=== PATIENT | female | born 1985 | race African-American/Black ===

== ENCOUNTER 2016-07-06 14:49 | Emergency (ER) | payer MEDICAID, MEDICARE ==
[~2016-07-06] VITALS: Ht 170.2 cm; Wt 95.0 kg
[2016-07-06] MEDS ORDERED: SODIUM CHLORIDE 0.9% 1,000 ML IV ONE (18:15)
[2016-07-06 18:32] LABS: CHLORIDE 105 mEq/L (98-107); INDEX HEMOLYSI 1 (1-3); INDEX ICTERIC 1 (1-4); INDEX LIPEMIC 2 (1-3)
[2016-07-06 18:34] LABS: BASOPHILS % 0.5 % (0.0-2.0); EOSINOPHILS % 1.7 % (0.0-5.0); HEMATOCRIT. 29.6 % (36.0-48.0); HEMOGLOBIN. 8.9 g/dL (12.0-16.0); LYMPHOCYTES % 13.1 % (20.0-50.0); MEAN CORPUSCULAR HEMOGLOBIN 20.2 pg (28.0-32.0); MEAN CORPUSCULAR HGB CONC 29.9 g/dL (31.0-37.0); MEAN CORPUSCULAR VOLUME 67.5 fL (81.0-99.0); MEAN PLATELET VOLUME 9.4 fl (7.4-10.4); NEUTROPHILS % 78.7 % (40.0-76.0); PLATELET 292 x1000/uL (130-400); RED BLOOD CELL COUNT 4.39 mill/uL (4.2-5.4); WHITE BLOOD COUNT 15.2 x1000/uL (4.5-11.0)
[2016-07-06 18:35] LABS: ADD RBC MORPHOLOGY YES; DIFFERENTIAL COMMENT 1
[2016-07-06 18:36] LABS: ANION GAP 12; CARBON DIOXIDE 24 mEq/L (21-32); UREA NITROGEN BLOOD 9 mg/dL (7-21)
[2016-07-06 18:42] LABS: eGFR > 60 mL/min (>60)
[2016-07-06 18:54] LABS: CLARITY URINE CLEAR (CLEAR); COLOR URINE YELLOW (YELLOW); GLUCOSE URINE NEGATIVE (NEGATIVE); KETONES URINE NEGATIVE (NEGATIVE); LEUKOCYTE ESTERASE URINE 3+ (NEGATIVE); NITRITE URINE NEGATIVE (NEGATIVE); OCCULT BLOOD URINE NEGATIVE (NEGATIVE); PH URINE 6.5 (4.5-8.0); PROTEIN URINE NEGATIVE (NEGATIVE); SPECIFIC GRAVITY URINE 1.019 (1.005-1.030); UROBILINOGEN URINE 0.2 E.U./dL (0.2-1.0)
[2016-07-06 18:54] LABS: B-HCG QUANTITATIVE 58871 mIU/mL (<3)
[2016-07-06 18:55] LABS: PLATELET ESTIMATE NORMAL
[2016-07-06 18:56] LABS: ANISOCYTOSIS 2+; HYPOCHROMASIA 2+
[2016-07-06 19:08] LABS: BACTERIA URINE 1+; RBC URINE 0-2 /hpf (0-2); SQUAMOUS EPITHELIAL CELL URINE RARE /lpf (RARE/1+)
[2016-07-06 19:12] LABS: *BARBITURATES SCREEN URINE NEGATIVE (NEGATIVE); *BENZODIAZEPINES SCREEN URINE NEGATIVE (NEGATIVE); *COCAINE SCREEN URINE NEGATIVE (NEGATIVE); CANNABINOID URINE SCREEN NEGATIVE (NEGATIVE); ECSTASY MDMA SCREEN URINE NEGATIVE (NEGATIVE); METHADONE URINE SCREEN NEGATIVE (NEGATIVE); OPIATES URINE SCREEN NEGATIVE (NEGATIVE)
[2016-07-06 19:22] LABS: *AMPHETAMINES SCREEN URINE PRESUMTIVE POSITIVE (NEGATIVE); PHENCYCLIDINE URINE SCREEN PRESUMTIVE POSITIVE (NEGATIVE)
[2016-07-06 20:44] VITALS: BP 138/86
== END 2016-07-06 20:46 | disposition home or self-care (01) ==
LOC: ER 15:11
DX: O20.0 Threatened abortion (principal); O23.41 Unspecified infection of urinary tract in pregnancy, first trimester; O99.321 Drug use complicating pregnancy, first trimester; F15.90 Other stimulant use, unspecified, uncomplicated; F16.90 Hallucinogen use, unspecified, uncomplicated; O24.311 Unspecified pre-existing diabetes mellitus in pregnancy, first trimester; E11.9 Type 2 diabetes mellitus without complications; O10.911 Unspecified pre-existing hypertension complicating pregnancy, first trimester; O99.011 Anemia complicating pregnancy, first trimester; Z3A.12 12 weeks gestation of pregnancy
CPT/HCPCS: 36415; 76801; 76817; 80048; 80305; 81001; 84702; 85025; 86850; 86870; 86900; 86901; 96360; 99285; J7030; Z7610

== ENCOUNTER 2021-11-28 00:07 | Emergency (ER) | payer MEDICAID ==
[~2021-11-28] VITALS: Ht 172.7 cm; Wt 98.2 kg
[2021-11-28] MEDS ORDERED: ONDANSETRON HCL 4MG/2ML INJ IV STA ×2 (01:42→03:51)
[2021-11-28] MEDS ORDERED: SODIUM CHLORIDE 0.9% 1,000 ML IV ONE (01:45)
[2021-11-28] MEDS ORDERED: KETOROLAC 30MG/ML VIAL IV STA (01:47)
[2021-11-28] MEDS ORDERED: FAMOTIDINE 20MG/2ML VIAL IV ONE (02:00)
[2021-11-28 02:07] LABS: CLARITY URINE CLEAR (CLEAR); COLOR URINE YELLOW (YELLOW); KETONES URINE 1+ (NEGATIVE); LEUKOCYTE ESTERASE URINE NEGATIVE (NEGATIVE); NITRITE URINE NEGATIVE (NEGATIVE); OCCULT BLOOD URINE NEGATIVE (NEGATIVE); PH URINE 5.5 (4.5-8.0); PROTEIN URINE 1+ (NEGATIVE); SPECIFIC GRAVITY URINE 1.033 (1.005-1.030)
[2021-11-28] MEDS ORDERED: FAMOTIDINE 20MG/2ML VIAL IV NR (02:15)
[2021-11-28 02:48] LABS: BASOPHILS % 0.1 % (0.0-2.0); EOSINOPHILS % 1.6 % (0.0-5.0); HEMATOCRIT. 30.7 % (36.0-48.0); HEMOGLOBIN. 8.8 g/dL (12.0-16.0); MEAN CORPUSCULAR HEMOGLOBIN 18.9 pg (28.0-32.0); MEAN CORPUSCULAR VOLUME 65.7 fL (81.0-99.0); MEAN PLATELET VOLUME 10.8 fl (7.4-10.4); MONOCYTES % 9.1 % (2.0-8.0); NEUTROPHILS % 80.2 % (40.0-76.0); PLATELET 282 x1000/uL (130-400); RED BLOOD CELL COUNT 4.67 mill/uL (4.2-5.4); RED CELL DISTRIBUTION WIDTH 19.3 % (11.6-14.6)
[2021-11-28 02:55] LABS: CHLORIDE 112 mEq/L (98-107)
[2021-11-28 02:59] LABS: PLATELET ESTIMATE NORMAL
[2021-11-28] MEDS ORDERED: ACETAMINOPHEN 325MG TABLET PO STA (03:51)
[2021-11-28] MEDS ORDERED: ACET-2708 PO (04:21)
[2021-11-28] MEDS ORDERED: ONDA4TAB11 PO (04:21)
[2021-11-28] MEDS ORDERED: BISM262T15 PO (04:21)
[2021-11-28 04:36] VITALS: BP 118/86
== END 2021-11-28 04:37 | disposition home or self-care (01) ==
LOC: ER 00:19
DX: K52.9 Noninfective gastroenteritis and colitis, unspecified (principal); R10.9 Unspecified abdominal pain; D64.9 Anemia, unspecified
CPT/HCPCS: 36415; 80053; 81003; 83690; 85025; 96361; 96374; 96375; 96376; 99284; J1885; J2405; J3490; J7030